=== PATIENT | female | born 1950 | race Two or more races ===

== ENCOUNTER 2018-04-26 10:54 | Day surgery (SDC) | payer OTHER ==
--- NOTE | 2018-04-25 10:35 | EKG ---
Test Date: 2018-04-25 Test Time: 09:41:47 Collection Development Librarian: BERTO MEASUREMENT RESULTS: Intervals: Rate: 57 ID: [id number] QRSD: 80 QT: 420 QTc: 408 [place]: P: 70 ID: [id number] QRS: 57 T: 52 INTERPRETIVE STATEMENTS: Sinus bradycardia Possible Left atrial enlargement Borderline ECG Compared to ECG 12/31/2002 15:04:00 No significant changes Electronically Signed On 04-25-18 10:34:36 CDT by Nura Falcon
[2018-04-26] MEDS ORDERED: Ringers Lactate 1,000 ML IV ONE ×2 (11:23→14:54)
[2018-04-26] MEDS ORDERED: FENTANYL CITR 250 MCG/5 ML ONE (13:15)
[2018-04-26] MEDS ORDERED: ROCURONIUM 50 MG/5 ML VIAL IV ONE (13:15)
[2018-04-26] MEDS ORDERED: PROPOFOL 200 MG/20 ML VIAL IV ONE (13:15)
[2018-04-26] MEDS ORDERED: DEXAMETHASONE 10 MG/ML VIAL ONE (13:15)
[2018-04-26] MEDS ORDERED: MIDAZOLAM HCL 2 MG/2 ML INJ ONE (13:15)
[2018-04-26] MEDS ORDERED: ONDANSETRON HCL 40 MG/20 ML VIAL ONE (13:16)
[2018-04-26] MEDS: LIDOCAINE 1% W/EPI 1:100,000 MDV 50 ML VIAL ONE ×2 (13:48→14:15)
[2018-04-26] MEDS ORDERED: EPHEDRINE SULF 50 MG/5 ML SYR ONE (15:23)
[2018-04-26] MEDS ORDERED: Mastisol Adhesive Liq ONE (15:27)
--- NOTE | 2018-04-26 15:32 | P.BOP ---
Preoperative diagnosis: R parotid mass Postoperative diagnosis: same Primary procedure: R partial parotidectomy without FN dissecion Loom Tuner: NONE,NONE Estimated blood loss: 10ml Specimen: R tail of parotid Anesthesia: General Complications: None Drain(s): ALEX drain Fluids & blood products: 1200ml crystalloid Transferred to: Recovery Room Condition: Good
[2018-04-26] MEDS: MEPERIDINE HCL 50 MG/ML AMP ONE ×2 (15:55→16:01)
[2018-04-26] MEDS ORDERED: ONDANSETRON 4 MG/2 ML VIAL ONE (15:57)
[2018-04-26] MEDS ORDERED: TRAMADOL HCL 50 MG TAB ONE (17:03)
--- NOTE | 2018-04-27 20:04 | OP ---
Date of Procedure: 04/26/2018 Surgeon: Shaunna Mac MD Preoperative Diagnosis: Right parotid mass. Postoperative Diagnosis: Right tail of parotid mass. Procedure: Right partial parotidectomy without facial nerve dissection. Indication For Procedure: Ms. Adorno presented to the clinic with a palpable mass in the infra-auricular region, and an MRI neck that showed a very mildly enhancing mass of about 1.6 cm. We discussed options, and the patient opted for surgical excision. Description Of Procedure In Detail: The patient was brought to the operating room and placed under general anesthesia via oral endotracheal tube. The head of bed was turned slightly, and a shoulder roll was placed. The neck was turned to the left for exposure of the right neck. The planned incision site was injected with 1% lidocaine with epinephrine. After time for effect, the neck was prepped and draped in a standard fashion and considerations were made with regard to approach. On palpation of the site, the mass of interest was noted to be posterior to the angle of the mandible just below the earlobe by about 1 to 1.5 cm. A decision was made for a minimally invasive initial approach, and a 4-cm incision was designed overlying the mass. This incision was placed within an existing skin crease and designed in such a way to allow for extension for full parotidectomy incision if necessary. The skin and subcutaneous tissues were divided and a sub SMAS flap was designed and elevated. The inferior most aspect of the mass was easily identified. The anterior border of the sternocleidomastoid muscle in its superior aspect was noted to be adherent to the posterior aspect of the parotid tissue, and was carefully elevated. The mass was elevated on these surfaces from the surrounding soft tissues without significant adherence or clinical evidence for invasion into these tissue planes. Once the inferior and lateral aspects were freed up, consideration was given for further dissection and facial nerve identification. With palpation of the mass, it was felt to be posterior and inferior to the likely course of the marginal mandibular nerve, and decision was made to perform excision without formal nerve identification. The soft tissue of the parotid, superior and anterior to the mass, was carefully dissected, with attention to any twitching or movement of the facial muscles. The superior border was released and the deep anterior aspect was carefully dissected. There was a significant size branch of venous structure, likely the retromandibular vein on the deep aspect of the mass. This was carefully bluntly dissected, and prior to final release, due to concern for inadvertent tearing of the veins, the vein was clamped, the specimen was released with cauterization from the tissue attachments, and the venous structure was ligated with a stick-tie. The surgical bed was carefully inspected and thoroughly irrigated with sterile saline. There was no evidence of significant bleeding noted. A 10-Luxembourger round drain was placed within the surgical site and brought out through a separate stab incision posterior and inferior to the incisions. The incision was then closed in a layered fashion using 4-0 Vicryl and a 5-0 Monocryl subcuticular suture. Steri-Strips and Mastisol were applied to the site. The area was cleaned and dried, and the patient was brought to the recovery room, was returned to care of anesthesia for awakening extubation, which proceeded without difficulty. The patient will be discharged home later today in the care of a friend, and follow up with Dr. Mac on Sunday for removal of the drain and evaluation of initial healing. МАРИЯ/LAURA Voice ID: [id number] Report ID: [id number] DONELL
== END 2018-04-26 17:40 | disposition home or self-care (01) ==
LOC: OR 10:54
PROVIDERS: ATTEND Otolaryngology
PROC: 0CB80ZZ Excision of Right Parotid Gland, Open Approach (ICD-10-PCS; principal; 2018-04-26 12:45)
DX: C85.81 Other specified types of non-Hodgkin lymphoma, lymph nodes of head, face, and neck (principal); Z88.3 Allergy status to other anti-infective agents; Z88.8 Allergy status to other drugs, medicaments and biological substances
CPT/HCPCS: 42410; 88307; 93005; J1100; J2175; J2250; J2405 ×2